=== PATIENT | male | born 1995 | race Caucasian/White ===

== ENCOUNTER 2024-05-08 09:29 | Outpatient (OUT) | payer OTHER, SELFPAY ==
[2024-05-08 10:00] LABS: Basophils Percent Auto 0.3 % (0.2-2.0); Eosinophils Absolute Auto 0.1 10^3/uL (0.0-0.7); Eosinophils Percent Auto 1.3 % (0.9-7.0); Hematocrit 39.8 % (42.0-54.0); Hemoglobin 12.8 g/dL (14.0-18.0); Immature Granulocytes Abs Auto 0.02 10^3/uL (0.00-0.03); Immature Granulocytes Pct Auto 0.3 % (0.0-0.5); Lymphocytes Absolute Auto 2.6 10^3/uL (1.2-3.8); Lymphocytes Percent Auto 38.6 % (20.5-60.0); Mean Corpuscular HGB Conc 32.2 g/dL (29.9-35.2); Mean Corpuscular Hemoglobin 27.8 pg (25.9-34.0); Mean Corpuscular Volume 86.3 fL (80.0-94.0); Mean Platelet Volume 10.8 fL (9.5-13.5); Monocytes Absolute Auto 0.8 10^3/uL (0.3-0.8); Monocytes Percent Auto 11.1 % (1.7-12.0); Neutrophils Absolute Auto 3.3 10^3/uL (1.4-6.5); Neutrophils Percent Auto 48.4 % (43.0-75.0); Platelet Count 247 10^3/uL (150-450); Red Blood Count 4.61 10^6/uL (4.70-6.10); Red Cell Distribution Width 12.7 % (11.0-15.0); White Blood Count 6.8 10^3/uL (4.0-11.0)
[2024-05-08 10:37] LABS: Estimated Average Glucose 126 mg/dL
[2024-05-08 12:11] LABS: Alanine Aminotransferase 148 U/L (16-63); Albumin Globulin Ratio 0.9; Albumin Level 3.6 g/dL (3.4-5.0); Alkaline Phosphatase 60 U/L (46-116); Aspartate Amino Transferase 49 U/L (15-37); BUN Creatinine Ratio 13.5; Bilirubin Total 0.5 mg/dL (0.2-1.0); Calcium 8.6 mg/dL (8.5-10.1); Carbon Dioxide 29.9 mmol/L (21.0-32.0); Chloride 103 mmol/L (98-107); Chol HDL Ratio 4.1; Cholesterol 139 mg/dL (<=200); Estimated GFR (African America >60 (>=60 mL/min/1.73m^2); Estimated GFR (Non-African Ame >60 (>=60 mL/min/1.73m^2); Free T3 3.13 pg/mL (2.18-3.98); Glucose 82 mg/dL (74-106); HDL Cholesterol 34 mg/dL (40-60); Potassium 3.9 mmol/L (3.5-5.1); Sodium 140 mmol/L (136-145); Thyroid Stimulating Hormone 2.206 uIU/mL (0.358-3.740); Total Protein 7.6 g/dL (6.4-8.2); Triglycerides 117 mg/dL (<=150); VLDL CHOLESTEROL 23.4 mg/dL
[2024-05-09 04:07] LABS: Insulin 17.9 uIU/mL (2.6-24.9)
== END 2024-05-08 09:30 | disposition home or self-care (01) ==
LOC: LAB 09:34
PROVIDERS: PCP Family Medicine; Visit Provider Family Medicine
DX: Z00.00 Encounter for general adult medical examination without abnormal findings (principal)
CPT/HCPCS: 36415; 80053; 80061; 83036; 83525; 84436; 84443; 84481; 85025; 87150

== ENCOUNTER 2024-05-31 08:06 | Outpatient (OUT) | payer OTHER, SELFPAY ==
--- OUTSIDE RECORDS SUMMARY | 2024-05-31 08:30 | XMS_ITS | CCD ---
Author Organization [facility] Informat ion Partnership [facility] Care Team Providers Care Nephrologist Name Role Phone DR YOVANI LOREDO Admitting Unavailable GERTRUDE, DR PINA Attending Unavailable DR YOVANI LOREDO Primary Care Unavailable Juma Roberts Attending Unavailable Results Test Name Value Interpretation Reference Range Facil ity Consenton 12-22-2021 Consent [id number] .00CD:127 [facility] In office Testingon 12-23-19 22 In office Testing [id number]# 1.00CD:127 [facility] Registrationon 12-22-2021 Registration [id number] .00CD:127 [facility] Encounters Encounter Date Encounter Type Care Provider Facility Start: 12-22-2021 End: 12-23-2021 ambulatory Juma Roberts Facility:[facility] Start: 12-05-[address] YOVANI LOREDO Facility : Payers Date Payer Category Payer Unknown [id number] 1958 Self-pay Summary Purpose Family History No Family History Records FoundNo Family History Records Found Advance Directives No Advanced Directives Records FoundNo Advanced Directives Records Found Additional Source Comments (unrecognized sect ion and content) No Status Records FoundNo Status Records Found INFORMATION SOURCE (unrecogn ized section and content) DATE CREATED AUTHOR 12/06/2021 [facility] DATE CREATED AUTHOR 'S ORGANIZ ATION 01/03/2022 [facility] FOR RECORDS PERTAINING TO PATIENTS WHO ARE OR HAVE BEEN ENROLLED IN A CHEMICAL DEPENDENCY/SUBSTANCEABUSE PROGRAM, SOME INFORMATION MAY BE OMITTED. This clinical summary was aggregated from multiple sources. Caution should be exercised in using it in the provision of clinical care. This summary normalizes information from multiple sources, and as a consequence, information in this document may materially change the coding, format and clinical context of patient data. In addition, data may be omitted in some cases. CLINICAL DECISIONS SHOULD BE BASED ON THE PRIMARY CLINICAL RECORDS. [facility]. provides no warranty or guarantee of the accuracy or completeness of information in this document.
[2024-05-31 09:05] LABS: Basophils Percent Auto 0.3 % (0.2-2.0); Eosinophils Absolute Auto 0.1 10^3/uL (0.0-0.7); Hemoglobin 13.8 g/dL (14.0-18.0); Immature Granulocytes Abs Auto 0.03 10^3/uL (0.00-0.03); Immature Granulocytes Pct Auto 0.3 % (0.0-0.5); Lymphocytes Absolute Auto 2.5 10^3/uL (1.2-3.8); Lymphocytes Percent Auto 28.4 % (20.5-60.0); Mean Corpuscular HGB Conc 32.1 g/dL (29.9-35.2); Mean Corpuscular Hemoglobin 27.9 pg (25.9-34.0); Mean Corpuscular Volume 86.9 fL (80.0-94.0); Mean Platelet Volume 11.6 fL (9.5-13.5); Monocytes Absolute Auto 0.7 10^3/uL (0.3-0.8); Monocytes Percent Auto 8.1 % (1.7-12.0); Neutrophils Absolute Auto 5.4 10^3/uL (1.4-6.5); Neutrophils Percent Auto 61.9 % (43.0-75.0); Platelet Count 240 10^3/uL (150-450); Red Blood Count 4.95 10^6/uL (4.70-6.10); Red Cell Distribution Width 12.8 % (11.0-15.0); White Blood Count 8.8 10^3/uL (4.0-11.0)
[2024-05-31 09:35] LABS: Alanine Aminotransferase 58 U/L (16-63); Albumin Globulin Ratio 0.9; Albumin Level 3.6 g/dL (3.4-5.0); Alkaline Phosphatase 67 U/L (46-116); Anion Gap 10.9; Aspartate Amino Transferase 24 U/L (15-37); BUN Creatinine Ratio 11.3; Bilirubin Total 0.4 mg/dL (0.2-1.0); Calcium 9.1 mg/dL (8.5-10.1); Carbon Dioxide 28.9 mmol/L (21.0-32.0); Chloride 102 mmol/L (98-107); Estimated GFR (African America >60 (>=60 mL/min/1.73m^2); Estimated GFR (Non-African Ame >60 (>=60 mL/min/1.73m^2); Globulin 4.1 g/dL; Glucose 86 mg/dL (74-106); Potassium 3.8 mmol/L (3.5-5.1); Sodium 138 mmol/L (136-145); Total Protein 7.7 g/dL (6.4-8.2)
[2024-06-01 05:07] LABS: HBsAg Screen Negative (Negative); HCV Ab Non Reactive (Non Reactive); Hep A Ab, IgM Negative (Negative); Hep B Core Ab, IgM Negative (Negative)
== END 2024-05-31 08:07 | disposition home or self-care (01) ==
LOC: LAB 08:08
PROVIDERS: PCP Family Medicine; Visit Provider Family Medicine
DX: R89.9 Unspecified abnormal finding in specimens from other organs, systems and tissues (principal)
CPT/HCPCS: 36415; 80053; 80074; 85025

== ENCOUNTER 2025-02-28 09:11 | Emergency (ER) | payer OTHER, SELFPAY ==
[2025-02-28 09:22] VITALS: BP 118/70; PULSE 60; TEMP 36.4; O2SAT 98; BMI 36.5
--- NOTE | 2025-02-28 09:28 | XR_ITS ---
The [address] [address] Patient Name: MARY BOYCE MRN: [id number] date: 1995 Sex: M Assigned Patient Location: ER Current Patient Location: Accession/Order Number: [id number] Exam Date: 02/28/2025 09:40 Report Date: 02/28/2025 10:07 At the request of: DENNIS THOMPSON MD Procedure: XR foot RT min 3V RIGHT FOOT - 3 views CLINICAL DATA: Pain at the fifth metatarsal after patient squatted down and felt a pop COMPARISON: None AP, lateral and oblique views were obtained. There is a transverse fracture at the proximal shaft of the fifth metatarsal, without displacement. There is no additional fracture or dislocation. There are no significant soft tissue abnormalities. XR/XR foot RT min 3V IMPRESSION: NONDISPLACED PROXIMAL FIFTH METATARSAL FRACTURE Impression dictated by: Lona Ponce M.D. 02/28/2025 10:07 AM Dictation Location: [place] [address] Electronically authenticated by: [id number] Y Date: 02/28/2025 10:07
--- NOTE | 2025-02-28 09:31 | ED_ITS ---
HPI HPI - General Adult General Chief complaint: Extremity Injury, Lower Stated complaint: LOWER EXTREMITY INJURY Time Seen by Provider: 02/28/25 09:24 Source: patient Mode of arrival: walk-in Limitations: no limitations History of Present Illness HPI narrative: 29-year-old male presents for right foot pain. This morning he crouched down and felt a popping in his foot. He points to the lateral aspect of his foot, fifth metatarsal area. The ankle does not hurt. He came in ambulatory. Related Data Previous Rx's ?Medication ?Instructions ?Recorded acetaminophen 300 mg-codeine 30 mg 1 tab PO Q6H PRN pa in 5 days #20 02/28/25 tablet tabs ibuprofen 800 mg tablet 800 mg PO Q8H PRN pain #20 t abs 02/28/25 Allergies Allergy/AdvReac Type Severity Reaction Status Date / Time No Known Drug Allergies Allergy Verified 02/28/25 09:25 Review of Systems ROS Narrative A ten point review of systems is negative except as noted above. PFSH PFSH Social History Little interest or pleasure in doing things: not at all Feeling down, depressed, or hopeless: not at all Exam Narrative Exam Narrative: Nurses note and vital signs reviewed General:The patient appears well and in no apparent distress.Patient is resting comfortably on cart. Skin:Warm, dry, no pallor noted.There is no rash noted. Head:Normocephalic, atraumatic Eye: Normal conjunctiva, no drainage Ears, Nose, Mouth, and Throat: oral mucosa is moist. Nares patent. Cardiovascular:Regular Rate and Rhythm Respiratory:Patient is in no distress, no accessory muscle use GI: Soft and nontender Musculoskeletal: The right ankle is nontender. He has some tenderness in the lateral aspect of his right foot where there is no bruising or break in the skin. Neurological: Awake and alert Psychiatric:Cooperative Constitutional Vital Signs, click to edit/add: Last Vital Signs Temp 97.6 F 02/28/25 09:22 Pulse 60 02/28/25 09:22 Resp 16 02/28/25 09:22 BP 118/70 02/28/25 09:22 Pulse Ox 98 02/28/25 09:22 O2 Del Method Room Air 02/28/25 09:22 Course Vital Signs Vital signs: Vital Signs Temperature 97.6 F 02/28/25 09:22 Pulse Rate 60 02/28/25 09:22 Respiratory Rate 16 02/28/25 09:22 Blood Pressure 118/70 02/28/25 09:22 Pulse Oximetry 98 02/28/25 09:22 Oxygen Delivery Method Room Air 02/28/25 09:22 Temperature 97.6 F 02/28/25 09:22 Pulse Rate 60 02/28/25 09:22 Respiratory Rate 16 02/28/25 09:22 Blood Pressure 118/70 02/28/25 09:22 Pulse Oximetry 98 02/28/25 09:22 Oxygen Delivery Method Room Air 02/28/25 09:22 Medical Decision Making MDM Narrative Medical decision making narrative: X-ray of the foot on my interpretation shows 1/5 metatarsal fracture. He is placed in a walking boot. Application checked by me and found to be appropriate, he is neurovascular intact. He is referred to podiatry and prescribed Tylenol 3 and ibuprofen. The importance of follow-up was discussed with the patient. Differential Diagnosis Differential Diagnosis: Fracture, sprain Imaging Data Right foot x-ray: My impression: Fifth metatarsal fracture Discharge Plan Discharge Chief Complaint: Extremity Injury, Lower Clinical Impression: Fracture of fifth metatarsal bone of right foot Patient Disposition: Home, Self-Care Time of Disposition Decision: 09:54 Condition: Good Mode of Transportation: Private Vehicle Prescriptions / Home Meds: New acetaminophen-codeine 300-30 mg tablet 1 tab PO Q6H PRN (Reason: pain) 5 Days Qty: 20 0RF ibuprofen 800 mg tablet 800 mg PO Q8H PRN (Reason: pain) Qty: 20 0RF Print Language: Stateless Instructions: Foot Fracture in Adults (ED) Referrals: Jose Antonio Henao MD [Primary Care Provider, Family Practice] - 1 week Raj Perez DPM [Physician, Podiatry]
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
--- OUTSIDE RECORDS SUMMARY | 2025-02-28 09:54 | XMS_ITS | Patient Health Record ---
Author Organization [facility] [place] Address [address] [place] [address] Care Team Providers Care Content Engineer Name Role Phone Deuce Henao Primary Care Provider Allergies No Known Allergies Results Component Value Reference Range Notes INSULIN Reviewed date:05/09/2024 02:26:39 PM Interpretation: Performing Lab: Notes/Report: [facility] , Insulin 17.9 2.6-24.9 uIU/mL [address] [place], [place] [id number] Rotary Drier: Fabrizio Garzon PhD, Phone: [phone] [facility]formed at: - [facility] Performing Lab: see note - [facility] LBGLYCOHEMOGLOBIN A1C Reviewed date:05/08/2024 09:05:54 PM Interpretation: Performing Lab: Notes/Report: [facility] ,Glycohemoglobin A1C6.04.5-6.2 % ADA RECOMMENDED LIMIT 4.0 - 6.0 > 7.0 ADA THERAPEUTIC TARGET < 7.0 ACTION SUGGESTED Estimated Average Ebohzri650Oojmstaqyk Lab:see noteML - [facility] LB CBC AUTO DIFF Reviewed date:05/08/2024 09:05:54 PM Interpretation: Performing Lab: Notes/Report: [facility] ,White Blood Count6.84.0-11.0 10 3/uLRed Blood Count4.614.70-6.10 10 6/uL Ucmrpwvlyk28.814.0-18.0 g/lSXbcfbkervg58.842.0-54.0 %Mean Corpuscular Fmkdvv50.3 80.0-94.0 fLMean Corpuscular Bxfzfldctt40.825.9-34.0 pgMean Corpuscular HGB Conc 32.229.9-35.2 g/dLRed Cell Distribution Width12.711.0-15.0 %Platelet Ssccw211 150-450 10 3/uLMean Platelet Zgttse01.89.5-13.5 fLNeutrophils Percent Auto48.4 43.0-75.0 %Lymphocytes Percent Auto38.620.5-60.0 %Monocytes Percent Auto11.11.7- 12.0 %Eosinophils Percent Auto1.30.9-7.0 %Basophils Percent Auto0.30.2-2.0 % Immature Granulocytes Pct Auto0.30.0-0.5 %Neutrophils Absolute Auto3.31.4-6.5 10 3/uLLymphocytes Absolute Auto2.61.2-3.8 10 3/uLMonocytes Absolute Auto0.80.3-0.8 10 3/uLEosinophils Absolute Auto0.10.0-0.7 10 3/uLBasophils Absolute Auto0.00.0- 0.1 10 3/uLImmature Granulocytes Abs Auto0.020.00-0.03 10 3/uLPerforming Lab:see noteML - [facility] LBTSH Reviewed date:05/08/2024 09:05:54 PM Interpretation: Performing Lab: Notes/Report: [facility] ,Thyroid Stimulating Hormone2.2060.358-3.740 uIU/mLPerforming Lab:see noteML - [facility] LBT4 Reviewed date:05/08/2024 09:05:54 PM Interpretation: Performing Lab: Notes/Report: [facility] ,T4 Thyroxine8.504.50-12.10 ug/dLPerforming Lab:see noteML - [facility] LBFREE T3 Reviewed date:05/08/2024 09:05:54 PM Interpretation: Performing Lab: Notes/Report: [facility] ,Free T33.132.18-3.98 pg/mLPerforming Lab:see noteML - [facility] LB Acute Hepatitis Reviewed date:06/01/2024 08:08:01 PM Interpretation: Performing Lab: Notes/Report: [facility] ,Hep A Ab, IgMNegativeNegative current HAV infection. A negative anti-HAV IgM result suggests no recent or HBsAg ScreenNegativeNegativeHep B Core Ab, IgMNegativeNegativeHCV AbNon Reactive Non ReactiveInterpretation:Comment. suspected (which may be delayed in an immunocompromised Performed at: - [facility] [address], [place], [place] [id number] individual), or other evidence exists to indicate HCV Not infected with HCV unless early or acute infection is infection. Rotary Drier: Fabrizio Garzon PhD, Phone: [phone] Performing Lab:see noteLC - [facility] LBPROF 14(COMP METB) Reviewed date:05/31/2024 12:42:49 PM Interpretation: Performing Lab: Notes/Report: [facility] ,Aqxxdi879016-267 mmol/LPotassium3.83.5-5.1 mmol/TRfjvekga37179-351 mmol/LCarbon Vlxwyip14.921.0-32.0 mmol/LAnion Gap10.0Pmalzxr1437-088 mg/dLBlood Urea Nitrogen 11.07.0-18.0 mg/dLCreatinine0.970.70-1.30 mg/dLEstimated GFR ( Bebe>60 >=60 mL/min/1.73m 2Estimated GFR (Non- Lurdes>60>=60 mL/min/1.73m 2BUN Creatinine Ratio11.4Mygueqv0.18.5-10.1 mg/dLBilirubin Total0.40.2-1.0 mg/dL Aspartate Amino Dvahqlfrlmi8928-00 U/LAlanine Jgzrgfqbhcequgnh5604-29 U/L Alkaline Entbendrtmn9859-082 U/LTotal Protein7.76.4-8.2 g/dLAlbumin Level3.63.4- 5.0 g/dLGlobulin4.1Albumin Globulin Ratio0.9Performing Lab:see noteML - [facility] LBCBC AUTO DIFF Reviewed date:05/31/2024 12:42:49 PM Interpretation: Performing Lab: Notes/Report: [facility] ,White Blood Count8.84.0-11.0 10 3/uLRed Blood Count4.954.70-6.10 10 6/uL Upguhuhjfd14.814.0-18.0 g/jNTzmahkaaqt36.042.0-54.0 %Mean Corpuscular Jxgzdc34.9 80.0-94.0 fLMean Corpuscular Sbburvycyo27.925.9-34.0 pgMean Corpuscular HGB Conc 32.129.9-35.2 g/dLRed Cell Distribution Width12.811.0-15.0 %Platelet Uzfii391 150-450 10 3/uLMean Platelet Mljddr06.69.5-13.5 fLNeutrophils Percent Auto61.9 43.0-75.0 %Lymphocytes Percent Auto28.420.5-60.0 %Monocytes Percent Auto8.11.7- 12.0 %Eosinophils Percent Auto1.00.9-7.0 %Basophils Percent Auto0.30.2-2.0 % Immature Granulocytes Pct Auto0.30.0-0.5 %Neutrophils Absolute Auto5.41.4-6.5 10 3/uLLymphocytes Absolute Auto2.51.2-3.8 10 3/uLMonocytes Absolute Auto0.70.3-0.8 10 3/uLEosinophils Absolute Auto0.10.0-0.7 10 3/uLBasophils Absolute Auto0.00.0- 0.1 10 3/uLImmature Granulocytes Abs Auto0.030.00-0.03 10 3/uLPerforming Lab:see noteML - [facility] LBPROF 14(COMP METB) Reviewed date:05/08/2024 09:05:54 PM Interpretation: Performing Lab: Notes/Report: [facility] ,Xhgjyk411382-993 mmol/LPotassium3.93.5-5.1 mmol/UXmsghkau81807-146 mmol/LCarbon Qqehhis17.921.0-32.0 mmol/LAnion Gap11.9Cwskosm7592-011 mg/dLBlood Urea Nitrogen 10.07.0-18.0 mg/dLCreatinine0.740.70-1.30 mg/dLEstimated GFR ( Bebe>60 >=60 mL/min/1.73m 2Estimated GFR (Non- Lurdes>60>=60 mL/min/1.73m 2BUN Creatinine Ratio13.9Nmdfxle8.68.5-10.1 mg/dLBilirubin Total0.50.2-1.0 mg/dL Aspartate Amino Fekjmfxzcqg2842-29 U/LAlanine Anoekxoicrmhmtyy95248-44 U/L Alkaline Zawardyingr1903-954 U/LTotal Protein7.66.4-8.2 g/dLAlbumin Level3.63.4- 5.0 g/dLGlobulin4.0Albumin Globulin Ratio0.9Performing Lab:see noteML - [facility] LBLIPID PROFILE Reviewed date:05/08/2024 09:05:54 PM Interpretation: Performing Lab: Notes/Report: [facility] ,Bentrmxqswaap351<=150 mg/kHKjhhagchizq563<=200 mg/dLHDL Mthjjiiedvq0114-93 mg/dL <40 mg/dl - HIGH CARDIOVASCULAR RISK > or =60 mg/dl - LOW CARDIOVASCULAR RISK LDL Cholesterol Inkypjdmsk90.0 160-189 mg/dl HIGH <100 mg/dl OPTIMAL 130-159 mg/dl BORDERLINE HIGH 100-129 mg/dl NEAR OR ABOVE OPTIMAL >190 mg/dl VERY HIGH VLDL SCQDVHXMSFJ80.4Chol HDL Ratio4.1 4.4 - 7.1 AVERAGE RISK >11.0 HIGH RISK 3.3 - 4.4 LOW RISK 7.1 - 11.0 MODERATE RISK Performing Lab:see noteML - [facility] LB Reason For Referral No Information Medications Medication SIG (Take, Route, Frequency, Duration) Notes Start Date End Date Status Cefdinir 300 MG 2 capsule Orally once a day; Dur ation: 10 days 5ActiveAmoxicillin-Pot Clavulanate 875-125 MG1 tablet Orally every 12 hrs; Duration: 10 days5ActiveDoxycycline Monohydrate 100 MG1 capsule Orally bid; Duration: 10 days5ActiveLisinopril 20 MG1 tablet Orally Once a day; Duration: 90 daysActive Social History Tobacco Use: Social History Observation Description Date Details (start date - stop date) Never Smoker NA - NA Tobacco Use/Smoking Question Answer Notes Patient is a nonsmoker Alcohol Screen (Audit-C) Question Answer Notes Did you have a drink containing alcohol in the p ast year? Yes How often did you have 6 or more drinks on one occasion in the past year?Never (0 point)How many drinks did you have on a typical day when you were drinking in the past year?1 or 2 drinks (0 point)How often did you have a drink containing alcohol in the past year?Less than monthly (1 point)Awnpqt7Eopetksrhvvcpv NegativeAUDIT-C (Standard) Question Answer Notes Did you have a drink containing alcohol in the p ast year? No Krgvrc6XhwizpyojzfwxdXwcmqysn Problems Problem Type SNOMED Code ICD Code Onset Dates Problem Status W/U Status Risk Notes Problem Hypertension (40025710) Hypertension (I10 ) ActiveconfirmedProblemWell adult (606586634)Well adult (Z00.00)Activeconfirmed ProblemLaboratory test result abnormal (708855103)Abnormal laboratory test (R89.9)Activeconfirmed Vital Signs Blood pressure diastolic 90 mm Hg 05/08/2024 Viyjny03 in05/08/2024lood pressure trcnfmfi620 mm Hg05/08/20240417Pzhmmp980.2 lbs 05/08/2024BMI47.14 kg/m205/08/2024 Encounters Encounter Location Date Provider Diagnosis [address] [address] 05/08/2024 Deuce Henao Well adult Z00.00 an d Ingrowing left great toenail L60.0 [facility] [address] [place] [address] 05/08/2024 Deuce Henao [facility] [place] [address] 05/08/2024Doug HoyAbnormal laboratory test R89.[address] [address]/08/2025Deuce Henao Assessments Encounter Date Diagnosis (ICD Code) Assessment Notes Treatment Notes Treatment Clinical Notes Section Notes 05/08/2024 Well adult (ICD-10 - Z00.00) 05/08/2024Ingrowing left great toenail (ICD-10 - L60.0)05/08/2024bnormal laboratory test (ICD-10 - R89.9) Plan Of Treatment Pending Test Test Name Order Date CMP (COMPLETE METABOLIC PANEL) 3 HEMOGLOBIN A1C (GLYCO) 05/08/2024 HEMOGLOBIN A1C (GLYCO) 02/23/2023 INSULIN, TOTAL 05/08/2024 INSULIN, TOTAL 02/23/2023 LIPID PANEL (CHOL/TRIG/HDL/LDL) 05/08/19 25 LIPID PANEL (CHOL/TRIG/HDL/LDL) 02/24/20 23 CBC WITH DIFF (EXP 02/2025) 02/23/2023 CBC WITH DIFF (EXP 02/2025) 05/08/2024 URIC ACID 02/23/2023 ACUTE HEPATITIS PANEL 05/08/2024 COMPREHENSIVE METABOLIC PROFILE WITH GFR 05/08/2024 CBC W/AUTO DIFF 05/08/2024 THYROID PANEL (T4/TSH/FREE T3) 5 THYROID PANEL (T4/TSH/FREE T3) 3 CMP (COMP MET LYONS) w/eGFR CKD-EPI 2024 Insurance Providers Payer Name Payer Address Payer Phone Subscriber Number Group Number Insured Name Patient Relationship to Insured Coverage Start Date Coverage End Date [facility] [address] [place] [id number] Cyrus Robles - patient is the insured Medical (General) History Medical History History ICD Code Otitis media H66.90 Ganglion cyst M67.40 Auditory impairment H91.90 ADHD F90.9 Surgical History Surgery Date(Month/Year) Circumcision
== END 2025-02-28 10:02 | disposition home or self-care (01) ==
PROVIDERS: Emergency Provider Emergency Medicine; PCP Family Medicine
DX: S92.354A Nondisplaced fracture of fifth metatarsal bone, right foot, initial encounter for closed fracture (principal); X58.XXXA Exposure to other specified factors, initial encounter
CPT/HCPCS: 73630; 99283

== ENCOUNTER 2025-03-27 13:43 | Outpatient (OUT) | payer OTHER, SELFPAY ==
--- OUTSIDE RECORDS SUMMARY | 2025-03-27 13:47 | XMS_ITS | Patient Health Record ---
Author Organization [facility] [place] Address [address] [place] [address] Care Team Providers Care Cardiology Consultants Name Role Phone Deuce Henao Primary Care Provider Allergies No Known Allergies Results Component Value Reference Range Notes CBC AUTO DIFF Reviewed date:05/08/2024 09:05:54 PM Interpretation: Performing Lab: Notes/Report: [facility] , White Blood Count 6.8 4.0-11.0 10 3/uL Red Blood Count4.614.70-6.10 10 6/wPRwwuixiehp13.814.0-18.0 g/mWFquniwvkad92.8 42.0-54.0 %Mean Corpuscular Ztepcm71.380.0-94.0 fLMean Corpuscular Hemoglobin 27.825.9-34.0 pgMean Corpuscular HGB Conc32.229.9-35.2 g/dLRed Cell Distribution Width12.711.0-15.0 %Platelet Qfsqm621246-931 10 3/uLMean Platelet Isjjkd43.89.5- 13.5 fLNeutrophils Percent Auto48.443.0-75.0 %Lymphocytes Percent Auto38.620.5- 60.0 %Monocytes Percent Auto11.11.7-12.0 %Eosinophils Percent Auto1.30.9-7.0 % Basophils Percent Auto0.30.2-2.0 %Immature Granulocytes Pct Auto0.30.0-0.5 % Neutrophils Absolute Auto3.31.4-6.5 10 3/uLLymphocytes Absolute Auto2.61.2-3.8 10 3/uLMonocytes Absolute Auto0.80.3-0.8 10 3/uLEosinophils Absolute Auto0.10.0- 0.7 10 3/uLBasophils Absolute Auto0.00.0-0.1 10 3/uLImmature Granulocytes Abs Auto0.020.00-0.03 10 3/uLPerforming Lab:see note - [facility] FREE T3 Reviewed date:05/08/2024 09:05:54 PM Interpretation: Performing Lab: Notes/Report: [facility] ,Free T33.132.18-3.98 pg/mLPerforming Lab:see [facility] GLYCOHEMOGLOBIN A1C Reviewed date:05/08/2024 09:05:54 PM Interpretation: Performing Lab: Notes/Report: [facility] ,Glycohemoglobin A1C6.04.5-6.2 % ADA RECOMMENDED LIMIT 4.0 - 6.0 > 7.0 ADA THERAPEUTIC TARGET < 7.0 ACTION SUGGESTED Estimated Average Keorujm161Mxtqgrtrvq [facility] Reviewed date:05/09/2024 02:26:39 PM Interpretation: Performing Lab: Notes/Report: [facility] ,Vzvjzso06.92.6-24.9 uIU/mL [address] [place], [place] [id number] Insurance Sales Associate: Fabrizio Garzon PhD, Phone: [phone] Performed at: [facility] Performing Lab:see [facility] LBLIPID PROFILE Reviewed date:05/08/2024 09:05:54 PM Interpretation: Performing Lab: Notes/Report: [facility] ,Lrzuypjuctxaz606<=150 mg/aTAiuxzfiehij886<=200 mg/dLHDL Ynamsibdqnq7048-38 mg/dL <40 mg/dl - HIGH CARDIOVASCULAR RISK > or =60 mg/dl - LOW CARDIOVASCULAR RISK LDL Cholesterol Yxzjqijvwm45.0 160-189 mg/dl HIGH <100 mg/dl OPTIMAL 130-159 mg/dl BORDERLINE HIGH 100-129 mg/dl NEAR OR ABOVE OPTIMAL >190 mg/dl VERY HIGH VLDL SZUWWWDNJMO40.4Chol HDL Ratio4.1 4.4 - 7.1 AVERAGE RISK >11.0 HIGH RISK 3.3 - 4.4 LOW RISK 7.1 - 11.0 MODERATE RISK Performing Lab:see noteML - [facility] LBPROF 14(COMP METB) Reviewed date:05/08/2024 09:05:54 PM Interpretation: Performing Lab: Notes/Report: [facility] ,Szdkuy568358-962 mmol/LPotassium3.93.5-5.1 mmol/TYpovcvwr27426-455 mmol/LCarbon Ffzrwke59.921.0-32.0 mmol/LAnion Gap11.0Iqpuwsp8238-747 mg/dLBlood Urea Nitrogen 10.07.0-18.0 mg/dLCreatinine0.740.70-1.30 mg/dLEstimated GFR ( Bebe>60 >=60 mL/min/1.73m 2Estimated GFR (Non- Lurdes>60>=60 mL/min/1.73m 2BUN Creatinine Ratio13.0Yizxqwo2.68.5-10.1 mg/dLBilirubin Total0.50.2-1.0 mg/dL Aspartate Amino Oikyhnixqam0369-22 U/LAlanine Ylppibgsstosyxro56601-62 U/L Alkaline Izxtfuehlps8793-514 U/LTotal Protein7.66.4-8.2 g/dLAlbumin Level3.63.4- 5.0 g/dLGlobulin4.0Albumin Globulin Ratio0.9Performing Lab:see noteML - [facility] LBT4 Reviewed date:05/08/2024 09:05:54 PM Interpretation: Performing Lab: Notes/Report: [facility] ,T4 Thyroxine8.504.50-12.10 ug/dLPerforming Lab:see noteML - [facility] LBTSH Reviewed date:05/08/2024 09:05:54 PM Interpretation: Performing Lab: Notes/Report: [facility] ,Thyroid Stimulating Hormone2.2060.358-3.740 uIU/mLPerforming Lab:see note - [facility] LBCBC AUTO DIFF Reviewed date:05/31/2024 12:42:49 PM Interpretation: Performing Lab: Notes/Report: [facility] ,White Blood Count8.84.0-11.0 10 3/uLRed Blood Count4.954.70-6.10 10 6/uL Hojsmkbccp99.814.0-18.0 g/jYKsqeyejktg74.042.0-54.0 %Mean Corpuscular Lamgjr76.9 80.0-94.0 fLMean Corpuscular Jpqpuafcil26.925.9-34.0 pgMean Corpuscular HGB Conc 32.129.9-35.2 g/dLRed Cell Distribution Width12.811.0-15.0 %Platelet Fkxwh389 150-450 10 3/uLMean Platelet Xyzlzn76.69.5-13.5 fLNeutrophils Percent Auto61.9 43.0-75.0 %Lymphocytes Percent Auto28.420.5-60.0 %Monocytes Percent Auto8.11.7- 12.0 %Eosinophils Percent Auto1.00.9-7.0 %Basophils Percent Auto0.30.2-2.0 % Immature Granulocytes Pct Auto0.30.0-0.5 %Neutrophils Absolute Auto5.41.4-6.5 10 3/uLLymphocytes Absolute Auto2.51.2-3.8 10 3/uLMonocytes Absolute Auto0.70.3-0.8 10 3/uLEosinophils Absolute Auto0.10.0-0.7 10 3/uLBasophils Absolute Auto0.00.0- 0.1 10 3/uLImmature Granulocytes Abs Auto0.030.00-0.03 10 3/uLPerforming Lab:see noteML - [facility] LBPROF 14(COMP METB) Reviewed date:05/31/2024 12:42:49 PM Interpretation: Performing Lab: Notes/Report: [facility] ,Pwdyrw094025-151 mmol/LPotassium3.83.5-5.1 mmol/YVhytjfgo07521-557 mmol/LCarbon Jkavjjx96.921.0-32.0 mmol/LAnion Gap10.2Pzqjgdn3061-656 mg/dLBlood Urea Nitrogen 11.07.0-18.0 mg/dLCreatinine0.970.70-1.30 mg/dLEstimated GFR ( Bebe>60 >=60 mL/min/1.73m 2Estimated GFR (Non- Lurdes>60>=60 mL/min/1.73m 2BUN Creatinine Ratio11.7Htowgyr7.18.5-10.1 mg/dLBilirubin Total0.40.2-1.0 mg/dL Aspartate Amino Jzwqbildxlm1423-11 U/LAlanine Jzxkhhsfdpvpatju4288-77 U/L Alkaline Atydwwhwuvs9654-351 U/LTotal Protein7.76.4-8.2 g/dLAlbumin Level3.63.4- 5.0 g/dLGlobulin4.1Albumin Globulin Ratio0.9Performing Lab:see noteML - [facility] LBAcute Hepatitis Reviewed date:06/01/2024 08:08:01 PM Interpretation: Performing Lab: Notes/Report: [facility] ,Hep A Ab, IgMNegativeNegative current HAV infection. A negative anti-HAV IgM result suggests no recent or HBsAg ScreenNegativeNegativeHep B Core Ab, IgMNegativeNegativeHCV AbNon Reactive Non ReactiveInterpretation:Comment. suspected (which may be delayed in an immunocompromised Performed at: - [facility] [id number] individual), or other evidence exists to indicate HCV Not infected with HCV unless early or acute infection is infection. Insurance Sales Associate: Fabrizio Garzon PhD, Phone: [phone] Performing Lab:see note - [facility] LBXR foot RT min 3V Reviewed date:02/28/2025 12:52:14 PM Interpretation: Performing Lab: Notes/Report: Source Facility: [facility]-[address] [place] [address] [place] [address] XRay Report Signed Patient: MARY ROBLES MR#: [id number] : 1995 Acct:[id number] Age/Sex: 29 / M ADM Date: 02/28/25 Loc: ER Attending Dr: Ordering Physician: Dennis Thompson M.D. Date of Service: 02/28/25 Procedure(s): XR foot RT min 3V Accession Number(s): [id number] cc: Jose Antonio Henao M.D.; Dennis Thompson M.D. [place] [id number] Patient Name: MARY ROBLES MRN: [id number] date: 1995 Sex: M Assigned Patient Location: ER Current Patient Location: Accession/Order Number: [id number] Exam Date: 02/28/2025 09:40 Report Date: 02/28/2025 10:07 At the request of: DENNIS THOMPSON MD Procedure: XR foot RT min 3V RIGHT FOOT - 3 views CLINICAL DATA: Pain at the fifth metatarsal after patient squatted down and felt a pop COMPARISON: None AP, lateral and oblique views were obtained. There is a transverse fracture at the proximal shaft of the fifth metatarsal, without displacement. There is no additional fracture or dislocation. There are no significant soft tissue abnormalities. XR/XR foot RT min 3V IMPRESSION: NONDISPLACED PROXIMAL FIFTH METATARSAL FRACTURE Impression dictated by: Lona Ponce M.D. 02/28/2025 10:07 AM Dictation Location: [place] [address] Electronically authenticated by: [id number] Y Date: 02/28/2025 10:07 Dictated By: Lona Ponce M.D. Signed By: 02/28/25 1010 DD/ 1007 TD/TT: Metal Cleaner: Reason For Referral No Information Medications Medication SIG (Take, Route, Frequency, Duration) Notes Start Date End Date Status Lisinopril 20 MG 1 tablet Orally Once a day; Dur ation: 90 days ActiveAcetaminophen-Codeine 300-30 MG 1 tablet as needed Orally every 6 hrs; Duration: 7 days S92.309A 5Active Social History Tobacco Use: Social History Observation [...] in the past year?Less than monthly (1 point)Mknvta4Qooafuvqoqypfm NegativeAUDIT-C (Standard) Question Answer Notes Did you have a drink containing alcohol in the p ast year? No Yjikzq4AbtogjybmxwhzjTfekhqji Problems Problem Type SNOMED Code ICD Code Onset Dates Problem Status W/U Status Risk Notes Problem Hypertension (81625598) Hypertension (I10 ) ActiveconfirmedProblemWell adult (639988151)Well adult (Z00.00)Activeconfirmed ProblemLaboratory test result abnormal (113156668)Abnormal laboratory test (R89.9)ActiveconfirmedProblemMetatarsal bone fracture (094323318)Metatarsal bone fracture (S92.309A)Activeconfirmed Vital Signs Blood pressure diastolic 90 mm Hg 05/08/2024 Ijyysx74 in05/08/2024lood pressure vsphnbwo867 mm Hg05/08/20247091Jgttwz921.2 lbs 05/08/2024BMI47.14 kg/m205/08/2024 Encounters Encounter Location Date Provider Diagnosis [address] [address] 05/08/2024 Deuce Hoy Well adult Z00.00 an d Ingrowing left great toenail L60.[address] [address] 05/08/2024 Deuce [facility] [place] [address] 05/08/2024Doug HoyAbnormal laboratory test R89.[address] [address]/08[facility] [place] [address]/26/2025Doug [facility] [place] [address] 03/12/2025Doug HoyIngrowing left great toenail L60.0 Assessments Encounter Date Diagnosis (ICD Code) Assessment Notes Treatment Notes Treatment Clinical Notes Section Notes 05/08/2024 Well adult (ICD-10 - Z00.00) 05/08/2024Ingrowing left great toenail (ICD-10 - L60.0)05/08/2024bnormal laboratory test (ICD-10 - R89.9)03/12/2025Ingrowing left great toenail (ICD-10 - L60.0) Plan Of Treatment Pending Test Test Name [...] Insured Coverage Start Date Coverage End Date [facility] [address] [place] [phone] [id number] Cyrus Robles - patient is the insured Medical (General) History Medical History History ICD Code Otitis media H66.90 Ganglion cyst M67.40 Auditory impairment H91.90 ADHD F90.9 Surgical History Surgery Date(Month/Year) Circumcision
--- OUTSIDE RECORDS SUMMARY | 2025-03-27 13:47 | XMS_ITS | Patient Health Record ---
Author Organization [employer] [facility] Address [address] [place], [place] [address] [address] Care Team Providers Care Banquet Steward Name Role Phone Jose Antonio Hneao M.D. Primary Care Provider UnavailRaj Andre Unavailable [phone] Allergies No Known Allergies Reason For Referral No Information Medications Medication SIG (Take, Route, Frequency, Duration) Notes Start Date End Date Status Acetaminophen-Codeine 300-30 MG Tablet 1 tablet as needed Orally every 6 hrs; Duration: 7 days As needed 515ActiveIbuprofen 800 MG Tablet 1 tablet with food or milk as needed Orally every 8 hrs; Duration: 30 days As needed 5ActiveAcetaminophen-Codeine 300-30 MG TabletOral; Duration: 5 Days ActiveLisinopril 20 MG TabletOral; Duration: 90 DaysActiveIbuprofen 800 MG TabletOral; Duration: 7 DaysActive Social History Section Notes: No tobacco use. Social alcohol use. No tobacco use. Social alcohol use. Encounters Encounter Location Date Provider Diagnosis [facility] [address] [address] 03/27/2025 Raj Perez Closed nondisplaced fracture of fifth metatarsal bone of right foot, initial encounter S92.354A [facility] [address] [address] 03/05/2025 Raj Perez Closed nondisplaced fracture of fifth metatarsal bone of right foot, initial encounter S92.354A Assessments Encounter Date Diagnosis (ICD Code) Assessment Notes Treatment Notes Treatment Clinical Notes Section Notes 03/05/2025 Closed nondisplaced fracture of fifth metatarsal bone of right foot, initial encounter (ICD-10 - S92.354A) Patient was seen and evaluated. I had a lengthy discussion with him regarding pros and cons of surgery. 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 I discussed that he should be nonweight bearing and provided a prescription for crutches and a handout for a knee scooter. I explained that where his 5th metatarsal fracture occured is at a location of a stress fracture and he did admit to having some pain in this area prior to the pop he felt last week. This area of the metatarsal has a relatively poor blood supply therefore can be slow to heal. I related that oftenyounger more active people are able to return back to normal activity and work up to a month or so s ooner if they undergo surgery. Further, with surgery there is a lesser chance of nonunion or delayed union. That said there is no way to predict the future and if he is strictly nonweight bearing we may see fracture healing on imaging in 8- 12 weeks. I recommended he discuss with his HR department regarding FMLA as he related that this injury did not occur while working. For now I recommended we write him off work for 3 months. He will call tomorrow if he would like to proceed with nonsurgical or surgical care. If he continues with nonsurgical care I recommended he f/u in 2 weeks with new xrays. 5Closed nondisplaced fracture of fifth metatarsal bone of right foot, initial encounter (ICD-10 - S92.354A) DOI 02/28/25 Eddy would like to undergo surgery however I related we should reevaluate xrays to ensure surgery is necessary given he is a month from his fracture. Xrays were ordered and reviewed. I called him with the results: I did prescribe refills for Tylenol #3 and ibuprofen. I provided a prescription for gait training with PT. Plan Of Treatment No Information Insurance Providers Payer Name Payer Address Payer Phone Subscriber Number Group Number Insured Name Patient Relationship to Insured Coverage Start Date Coverage End Date [employer] [address] [address] [place] [address] [id number] Cyrus Robles - patient is the insured Medical (General) History Medical History History ICD Code High Blood Pressure
--- NOTE | 2025-03-27 14:05 | XR_ITS ---
The [address] [address] Patient Name: MARY BOYCE MRN: [id number] date: 1995 Sex: M Assigned Patient Location: [facility] Current Patient Location: Accession/Order Number: [id number] Exam Date: 03/27/2025 14:10 Report Date: 03/27/2025 23:33 At the request of: AKBAR MULLER DPM Procedure: XR foot RT min 3V 3 views right foot compared to prior examination 02/28/2025. There is stable bony alignment with interval healing of fracture of the proximal portion of the fifth metatarsal. XR/XR foot RT min 3V Impression: Healing fracture with stable alignment Impression dictated by: Del Michael M.D. 03/27/2025 11:33 PM Dictation Location: [place] [address] Electronically authenticated by: [id number] Y Date: 03/27/2025 23:33
== END 2025-03-27 13:44 | disposition home or self-care (01) ==
LOC: RAD 13:45
PROVIDERS: PCP Family Medicine; Visit Provider Podiatrist Foot & Ankle Surgery
DX: M79.671 Pain in right foot (principal); S92.354D Nondisplaced fracture of fifth metatarsal bone, right foot, subsequent encounter for fracture with routine healing
CPT/HCPCS: 73630

== ENCOUNTER 2025-04-03 13:37 | Outpatient (OUT) | payer OTHER, SELFPAY ==
--- OUTSIDE RECORDS SUMMARY | 2025-03-27 08:30 | XMS_ITS ---
Author Organization [employer] Address [address] [address], [facility] [place] [address] Care Team Providers Care Electronics Specialist Name Role Phone Jose Antonio Henao M.D. Primary Care Provider UnavailRaj Andre Unavailable [phone] Allergies No Known Allergies REASON FOR VISIT Surgery Consult Agapito Edgar Medications Medication SIG (Take, Route, Frequency, Duration) Notes Start Date End Date Status Acetaminophen-Codeine 300-30 MG Tablet 1 tablet as needed Orally every 6 hrs; Duration: 7 days As needed 515ActiveAcetaminophen-Codeine 300-30 MG TabletOral; Duration: 5 DaysActiveIbuprofen 800 MG Tablet 1 tablet with food or milk as needed Orally every 8 hrs; Duration: 30 days As needed 5ActiveLisinopril 20 MG TabletOral; Duration: 90 DaysActiveIbuprofen 800 MG TabletOral; Duration: 7 DaysActive Social History Section Notes: No tobacco use. Social alcohol use. Encounters Encounter [facility] Date [facility] [address] [address], [facility] [place] [address] 03/27/2025 Raj Perez Closed nondisplaced fracture of fifth metatarsal bone of right foot, initial encounter S92.354A Assessments Encounter Date Diagnosis (ICD Code) Assessment Notes Treatment Notes Treatment Clinical Notes Section Notes 03/27/2025 Closed nondisplaced fracture of fifth metatarsal bone of right foot, initial encounter (ICD-10 - S92.354A) DOI 02/28/25 Eddy would like to undergo surgery however I related we should reevaluate xrays to ensure surgery is necessary given he is a month from his fracture. Xrays were ordered and reviewed. I called him with the results: Xrays reveal that fracture is unhealed and more visible on plain films. I discussed the pros & cons of continued nonoperative care vs surgical intervention. Patient would like to undergo surgical intervention and I recommended: Open reduction and internal fixation of right 5th metatarsal fracture Specific complications that could potentially occur were discussed in detail which included wound/dehiscence, infection, pain, bleeding, numbness/tingling, DVT/PE, swelling and need for additional surgery. Additional complications discussed included nonunion, delayed union, malunion and painful hardware. Postoperative course was discussed including weight bearing status: NWB x1-3 weeks Estimated time off of work: 3 months Orders for preoperative clearance and scheduling were placed. Anesthesia was discussed and all questions answered to satisfaction. I did prescribe refills for Tylenol #3 and ibuprofen. I provided a prescription for gait training with PT. Plan Of Treatment Medication Medication Name Sig Start Date Stop Date Notes Acetaminophen-Codeine 300-30 MG Tablet 1 tablet as needed Orally every 6 hrs; Duration: 7 days 03/27/2025 04/03/2025 Ibuprofen 800 MG Tablet1 tablet with food or milk as needed Orally every 8 hrs; Duration: 30 days03/27/2025Treatment Notes Assessment Notes Closed nondisplaced fracture of fifth metatarsal bone of right foot, initial encounter DOI 02/28/25 Eddy would like to undergo surgery however I related we should reevaluate xrays to ensure surgery is necessary given he is a month from his fracture. Xrays were ordered and reviewed. I called him with the results: Xrays reveal that fracture is unhealed and more visible on plain films. I discussed the pros & cons of continued nonoperative care vs surgical intervention. Patient would like to undergo surgical intervention and I recommended: Open reduction and internal fixation of right 5th metatarsal fracture Specific complications that could potentially occur were discussed in detail which included wound/dehiscence, infection, pain, bleeding, numbness/tingling, DVT/PE, swelling and need for additional surgery. Additional complications discussed included nonunion, delayed union, malunion and painful hardware. Postoperative course was discussed including weight bearing status: NWB x1-3 weeks Estimated time off of work: 3 months Orders for preoperative clearance and scheduling were placed. Anesthesia was discussed and all questions answered to satisfaction. I did prescribe refills for Tylenol #3 and ibuprofen. I provided a prescription for gait training with PT. Next Appt Details Follow Up: 1 week post op, R rahel: History and Physical Notes * HPI (History of Present Illness) CategorySub-CategoryDetailNotesCategory NotesFootEddy presents for f/u of right Agapito Fx. He relates he hasn't been able to use crutches because he doesn't know how so has been WBAT in CAM boot. He relates after a lot of thought he would like to proceed with surgery. He denies calf pain, CP and SOB. Examination CategorySub-CategoryDetailNotesCategory NotesGeneral Examination Skin: Skin intact. No sign of infection Neuro: LTS intact to plantar and dorsal foot. Negative tinel's sign Vasc: pedal pulses are palpable. No calf pain on squeeze. Right lateral foot swelling MSK: POP over proximal 5th met shaft. Strength and ROM deferred due to known fracture. No obvious deformity. He is able to wiggle toes without pain. Compartments are soft. Progress Notes * Fahad ROBLESDOB: 7 (29 yo M)Acc No.[id number]:03/27/2025 Progress Notes Patient: Fahad Grullon :?JENNIFER ArandaOB:1995???Age:29 Y ???Sex:MaleDate:03/27/2025Phone:Address:[address] [place] [address] , [facility] [place]Pcp:Jose Antonio Henao M.D. Subjective: * Chief Complaints: * S urgery Consult Agapito Fx * HPI: ???Foot:?Eddy presents for f/u of right Agapito Fx. He relates he hasn't been able to use crutches because he doesn't know how so has been WBAT in CAM boot. He relates after a lot of thought he would like to proceed with surgery. He denies calf pain, CP and SOB. * Medical History: High Blood Pressure Medical History Verified * Surgical History: Denies Past Surgical History.? Surgical History verified.? * Family History: M other: alive, diagnosed with Type 2 diabetes mellitus without complication, unspecified whether residential insulin use, Essential hypertension. F amily History Verified.. * Social History: Social History Verified. ???No tobacco use. Social alcohol use. * Medications: T akingAcetaminophen-Codeine 300-30 MG Tablet Oral Lisinopril 20 MG Tablet Oral Ibuprofen 800 MG Tablet Oral Medication List reviewed and reconciled with the patientTaking Acetaminophen-Codeine 300-30 MG Tablet Oral Taking Lisinopril 20 MG Tablet Oral Taking Ibuprofen 800 MG Tablet Oral Medication List reviewed and reconciled with the patient * Allergies: N .K.D.A.yesAllergies Verified. Objective: * Examination: ???General Examination: ???Skin: Skin intact. No sign of infection Neuro: LTS intact to plantar and dorsal foot. Negative tinel's sign Vasc: pedal pulses are palpable. No calf pain on squeeze. Right lateral foot swelling MSK: POP over proximal 5th met shaft. Strength and ROM deferred due to known fracture. No obvious deformity. He is able to wiggle toes without pain. Compartments are soft. Assessment: * Assessment: 1.?Closed nondisplaced fracture of fifth metatarsal bone of right foot, initial encounter - S92.354A (Primary)??? Plan: * Treatment: Start Acetaminophen-Codeine Tablet, 300-30 MG, 1 tablet as needed, Orally, every 6 hrs As needed, 7days, 28 Tablet, Refills 0;?Start Ibuprofen Tablet, 800 MG, 1 tablet with food or milk as needed, Orally, every 8 hrs As needed, 30 days, 90 Tablet, Refills 1.?? Notes: DOI 02/28/25 Eddy would like to undergo surgery however I related we should reevaluate xrays to ensure surgery is necessary given he is a month from his fracture. Xrays were ordered and reviewed. I called him with the results:? Xrays reveal that fracture is unhealed and more visible on plain films.? I discussed the pros & cons of continued nonoperative care vs surgical intervention. Patient would like to undergo surgical intervention and I recommended: Open reduction and internal fixation of right 5th metatarsal fracture Specific complications that could potentially occur were discussed in detail which included wound/dehiscence, infection, pain, bleeding, numbness/tingling, DVT/PE, swelling and need for additional surgery. Additional complications discussed included nonunion, delayed union, malunion and painful hardware. Postoperative course was discussed including weight bearing status: NWB x1-3 weeks Estimated time off of work: 3 months Orders for preoperative clearance and scheduling were placed. Anesthesia was discussed and all questions answered to satisfaction.? I did prescribe refills for Tylenol #3 and ibuprofen. I provided a prescription for gait training with PT.??? * Follow Up: 1 week post op Billing Information: * Visit Code: 32542 Office Visit, Est Pt., Level 4. * Procedure Codes: * Sign off status: Completed true * Provider: Shannon Perez DPM Date: 05/28/2024 Generated for Printing/Faxing/eTransmitting on:?04/03/2025 01:42 PM EST
--- OUTSIDE RECORDS SUMMARY | 2025-04-03 13:42 | XMS_ITS | Patient Health Record ---
Author Organization [email or web address] [facility] Address [address] [place], [place] [address], [place] [address] Care Team Providers Care Cow Washer Name Role Phone Jose Antonio Henao M.D. Primary Care Provider UnavailRaj Andre Unavailable [phone] Allergies No Known Allergies Reason For Referral [...] use. Encounters Encounter Location Date Provider Diagnosis [facility] [address] [address] 03/05/2025 Raj Perez Closed nondisplaced fracture of fifth metatarsal bone of right foot, initial encounter S92.354A [facility] [address] [address] 03/27/2025 Raj Perez Closed nondisplaced fracture of [...] Coverage Start Date Coverage End Date [employer] [address] [address] [place] [address] [id number] Cyrus Robles - patient is the insured Medical (General) History Medical History History ICD Code High Blood Pressure
--- OUTSIDE RECORDS SUMMARY | 2025-04-03 13:43 | XMS_ITS | Patient Health Record ---
Author Organization [facility] in [place] Address [address] [place] [address] Care Team Providers Care Defence Force Member Other Ranks Name Role Phone Deuce Henao Primary Care Provider Allergies No Known Allergies Results Component Value Reference Range Notes CBC AUTO DIFF Reviewed date:05/08/2024 09:05:54 PM Interpretation: Performing Lab: Notes/Report: [facility] , White Blood Count 6.8 4.0-11.0 10 3/uL Red Blood Count4.614.70-6.10 10 6/uTVvsdlnmblj30.814.0-18.0 g/mKTtqqkwaqbm86.8 42.0-54.0 %Mean Corpuscular Usjyzu10.380.0-94.0 fLMean Corpuscular Hemoglobin 27.825.9-34.0 pgMean Corpuscular HGB Conc32.229.9-35.2 g/dLRed Cell Distribution Width12.711.0-15.0 %Platelet Dykdd056610-855 10 3/uLMean Platelet Dqgalk28.89.5- 13.5 fLNeutrophils Percent Auto48.443.0-75.0 %Lymphocytes Percent Auto38.620.5- 60.0 %Monocytes Percent Auto11.11.7-12.0 %Eosinophils Percent Auto1.30.9-7.0 % Basophils Percent Auto0.30.2-2.0 %Immature Granulocytes Pct Auto0.30.0-0.5 % Neutrophils Absolute Auto3.31.4-6.5 10 3/uLLymphocytes Absolute Auto2.61.2-3.8 10 3/uLMonocytes Absolute Auto0.80.3-0.8 10 3/uLEosinophils Absolute Auto0.10.0- 0.7 10 3/uLBasophils Absolute Auto0.00.0-0.1 10 3/uLImmature Granulocytes Abs Auto0.020.00-0.03 10 3/uLPerforming Lab:see noteML - [facility] LB FREE T3 Reviewed date:05/08/2024 09:05:54 PM Interpretation: Performing Lab: Notes/Report: [facility] ,Free T33.132.18-3.98 pg/mLPerforming Lab:see noteML - [facility] LB LIPID PROFILE Reviewed date:05/08/2024 09:05:54 PM Interpretation: Performing Lab: Notes/Report: [facility] ,Rqrkxznmnksct730<=150 mg/fOUnxzlnmaoes070<=200 mg/dLHDL Dsgrwtymqgf9975-30 mg/dL > or =60 mg/dl - LOW CARDIOVASCULAR RISK <40 mg/dl - HIGH CARDIOVASCULAR RISK LDL Cholesterol Crlllnavtu75.0 <100 mg/dl OPTIMAL 100-129 mg/dl NEAR OR ABOVE OPTIMAL 130-159 mg/dl BORDERLINE HIGH 160-189 mg/dl HIGH >190 mg/dl VERY HIGH VLDL MEHFJKWLYTO55.4Chol HDL Ratio4.1 3.3 - 4.4 LOW RISK 4.4 - 7.1 AVERAGE RISK 7.1 - 11.0 MODERATE RISK >11.0 HIGH RISK Performing Lab:see noteML - [facility] LBPROF 14(COMP METB) Reviewed date:05/08/2024 09:05:54 PM Interpretation: Performing Lab: Notes/Report: [facility] ,Iluldc404142-029 mmol/LPotassium3.93.5-5.1 mmol/YKuddwxgu13474-339 mmol/LCarbon Bmhlmqx66.921.0-32.0 mmol/LAnion Gap11.0Dwflqyt7633-044 mg/dLBlood Urea Nitrogen 10.07.0-18.0 mg/dLCreatinine0.740.70-1.30 mg/dLEstimated GFR ( Bebe>60 >=60 mL/min/1.73m 2Estimated GFR (Non- Lurdes>60>=60 mL/min/1.73m 2BUN Creatinine Ratio13.3Cgqzytx6.68.5-10.1 mg/dLBilirubin Total0.50.2-1.0 mg/dL Aspartate Amino Lpixotfseki8830-97 U/LAlanine Qzijlpmcdfhgywxu66204-74 U/L Alkaline Cfaoqugcley3660-478 U/LTotal Protein7.66.4-8.2 g/dLAlbumin Level3.63.4- 5.0 g/dLGlobulin4.0Albumin Globulin Ratio0.9Performing Lab:see noteML - [facility] LBT4 Reviewed date:05/08/2024 09:05:54 PM Interpretation: Performing Lab: Notes/Report: [facility] ,T4 Thyroxine8.504.50-12.10 ug/dLPerforming Lab:see noteML - [facility] LBTSH Reviewed date:05/08/2024 09:05:54 PM Interpretation: Performing Lab: Notes/Report: [facility] ,Thyroid Stimulating Hormone2.2060.358-3.740 uIU/mLPerforming Lab:see noteML - [facility] LBCBC AUTO DIFF Reviewed date:05/31/2024 12:42:49 PM Interpretation: Performing Lab: Notes/Report: [facility] ,White Blood Count8.84.0-11.0 10 3/uLRed Blood Count4.954.70-6.10 10 6/uL Dqukeihrjt32.814.0-18.0 g/bBFrafiqqnbh16.042.0-54.0 %Mean Corpuscular Vgkhou18.9 80.0-94.0 fLMean Corpuscular Xqbwumdyal42.925.9-34.0 pgMean Corpuscular HGB Conc 32.129.9-35.2 g/dLRed Cell Distribution Width12.811.0-15.0 %Platelet Dwlrx282 150-450 10 3/uLMean Platelet Eczijq39.69.5-13.5 fLNeutrophils Percent Auto61.9 43.0-75.0 %Lymphocytes Percent Auto28.420.5-60.0 %Monocytes Percent Auto8.11.7- 12.0 %Eosinophils Percent Auto1.00.9-7.0 %Basophils Percent Auto0.30.2-2.0 % Immature Granulocytes Pct Auto0.30.0-0.5 %Neutrophils Absolute Auto5.41.4-6.5 10 3/uLLymphocytes Absolute Auto2.51.2-3.8 10 3/uLMonocytes Absolute Auto0.70.3-0.8 10 3/uLEosinophils Absolute Auto0.10.0-0.7 10 3/uLBasophils Absolute Auto0.00.0- 0.1 10 3/uLImmature Granulocytes Abs Auto0.030.00-0.03 10 3/uLPerforming Lab:see noteML - [facility] LBPROF 14(COMP METB) Reviewed date:05/31/2024 12:42:49 PM Interpretation: Performing Lab: Notes/Report: [facility] ,Twqmfp735647-807 mmol/LPotassium3.83.5-5.1 mmol/EUqztzoqm32913-840 mmol/LCarbon Dcldcpu90.921.0-32.0 mmol/LAnion Gap10.3Dlnmcaj4117-999 mg/dLBlood Urea Nitrogen 11.07.0-18.0 mg/dLCreatinine0.970.70-1.30 mg/dLEstimated GFR ( Bebe>60 >=60 mL/min/1.73m 2Estimated GFR (Non- Lurdes>60>=60 mL/min/1.73m 2BUN Creatinine Ratio11.7Tqwfcnr0.18.5-10.1 mg/dLBilirubin Total0.40.2-1.0 mg/dL Aspartate Amino Ihhobfegiwo3059-23 U/LAlanine Itdnwtbmvazsmngm4869-54 U/L Alkaline Aadencrmjyb6098-924 U/LTotal Protein7.76.4-8.2 g/dLAlbumin Level3.63.4- 5.0 g/dLGlobulin4.1Albumin Globulin Ratio0.9Performing Lab:see noteML - [facility] LBXR foot RT min 3V Reviewed date:03/29/2025 12:05:17 PM Interpretation: Performing Lab: Notes/Report: Source Facility: [place] [id number] XRay Report Signed Patient: MARY ROBLES MR#: [id number] : 1995 Acct:[id number] Age/Sex: 29 / M ADM Date: 03/27/25 Loc: RAD Attending Dr: Akbar Perez D.P.M. Ordering Physician: Akbar Perez D.P.M. Date of Service: 03/27/25 Procedure(s): XR foot RT min 3V Accession Number(s): [id number] cc: Akbar Perez D.P.M.; Jose Antonio Henao M.D. [address] [place] [address] Patient Name: MARY ROBLES MRN: [id number] date: 1995 Sex: M Assigned Patient Location: [facility] Current Patient Location: PT Accession/Order Number: [id number] Exam Date: 03/27/2025 14:10 Report Date: 03/27/2025 23:33 At the request of: AKBAR PEREZ DPM Procedure: XR foot RT min 3V 3 views right foot compared to prior examination 02/28/2025. There is stable bony alignment with interval healing of fracture of the proximal portion of the fifth metatarsal. XR/XR foot RT min 3V Impression: Healing fracture with stable alignment Impression dictated by: Del Michael M.D. 03/27/2025 11:33 PM Dictation Location: [place] [address] Electronically authenticated by: [id number] Y Date: 03/27/2025 23:33 Dictated By: Del Michael D.O. Signed By: 03/27/252335 DD/ 32 TD/TT: Foster Care Therapist:Acute Hepatitis Reviewed date:06/01/2024 08:08:01 PM Interpretation: Performing Lab: Notes/Report: [facility] ,Hep A Ab, IgMNegativeNegative A negative anti-HAV IgM result suggests no recent or current HAV infection. HBsAg ScreenNegativeNegativeHep B Core Ab, IgMNegativeNegativeHCV AbNon Reactive Non ReactiveInterpretation:Comment. Not infected with HCV unless early or acute infection is suspected (which may be delayed in an immunocompromised individual), or other evidence exists to indicate HCV infection. Performed at: [address] [id number] Starting Gate Driver: Fabrizio Garzon PhD, Phone: [phone] Performing Lab:see note - [facility] LBINSULIN Reviewed date:05/09/2024 02:26:39 PM Interpretation: Performing Lab: Notes/Report: [facility] ,Pjkxcos89.92.6-24.9 uIU/mL Performed at: [address] [id number] Starting Gate Driver: Fabrizio Garzon PhD, Phone: [phone] Performing Lab:see [facility] LBGLYCOHEMOGLOBIN A1C Reviewed date:05/08/2024 09:05:54 PM Interpretation: Performing Lab: Notes/Report: [facility] ,Glycohemoglobin A1C6.04.5-6.2 % ADA RECOMMENDED LIMIT 4.0 - 6.0 ADA THERAPEUTIC TARGET < 7.0 ACTION SUGGESTED > 7.0 Estimated Average Ljsavlg479Bynkhlygcy Lab:see note - [facility] LB XR foot RT min 3V Reviewed date:02/28/2025 12:52:14 PM Interpretation: Performing Lab: Notes/Report: Source Facility: [place] [address] [place] [address] XRay Report Signed Patient: MARY ROBLES MR#: [id number] : 1995 Acct:[id number] Age/Sex: 29 / M ADM Date: 02/28/25 Loc: ER Attending Dr: Ordering Physician: Dennis Thompson M.D. Date of Service: 02/28/25 Procedure(s): XR foot RT min 3V Accession Number(s): [id number] cc: Jose Antonio Henao M.D.; Dennis Thompson M.D. [place] [address] Patient Name: MARY ROBLES MRN: [id number] date: 1995 Sex: M Assigned Patient Location: ER Current Patient Location: Accession/Order Number: [id number] Exam Date: 02/28/2025 09:40 Report Date: 02/28/2025 [...] Ponce M.D. 02/28/2025 10:07 AM Dictation Location: [place] [address] Electronically authenticated by: [id number] Y Date: 02/28/2025 10:07 Dictated By: Lona Ponce M.D. Signed By: 02/28/25 1010 DD/ 1007 TD/TT: Foster Care Therapist: Reason For Referral No Information Medications Medication [...] in the past year?Less than monthly (1 point)Mnzspn6Puuicqrouulhfk NegativeAUDIT-C (Standard) Question Answer Notes Did you have a drink containing alcohol in the p ast year? No Kvuddv6OznhllweiufbnlWcpdetdg Problems Problem Type SNOMED Code ICD Code Onset Dates Problem Status W/U Status Risk Notes Problem Hypertension (46687175) Hypertension (I10 ) ActiveconfirmedProblemWell adult (094639073)Well adult (Z00.00)Activeconfirmed ProblemLaboratory test result abnormal (495481799)Abnormal laboratory test (R89.9)ActiveconfirmedProblemMetatarsal bone fracture (273143180)Metatarsal bone fracture (S92.309A)Activeconfirmed Vital Signs Blood pressure diastolic 90 mm Hg 05/08/2024 Masvhn41 in05/08/2024lood pressure usjkpafr265 mm Hg05/08/20247155Ovecis618.2 lbs 05/08/2024BMI47.14 kg/m205/08/2024 Encounters Encounter Location Date Provider Diagnosis [place] [address] [place] [address] 05/08/2024 Deuce [facility] Well adult Z00.00 an d Ingrowing left great toenail L60.0 [facility] [address] [place] [address] 05/08/2024 Deuce [facility] [place] [address] 05/08/2024Doug HoyAbnormal laboratory test R89.[address] [place] [address]/08/2025[facility] [place] [address]/Doug [facility] [place] [address] 03/12/2025Doug HoyIngrowing left great toenail L60.0 Assessments [...] Insured Coverage Start Date Coverage End Date [facility] [place] [address] [place] [phone] [id number] Cyrus Robles - patient is the insured Medical (General) History Medical History History ICD Code Otitis media H66.90 Ganglion cyst M67.40 Auditory impairment H91.90 ADHD F90.9 Surgical History Surgery Date(Month/Year) Circumcision
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
[2025-04-03 15:14] LABS: Anion Gap 8.8; Blood Urea Nitrogen 13.0 mg/dL (7.0-18.0); Calcium 8.8 mg/dL (8.5-10.1); Carbon Dioxide 32.3 mmol/L (21.0-32.0); Chloride 104 mmol/L (98-107); Estimated GFR (African America >60 (>=60 mL/min/1.73m^2); Estimated GFR (Non-African Ame >60 (>=60 mL/min/1.73m^2); Glucose 145 mg/dL (74-106); Potassium 4.1 mmol/L (3.5-5.1); Sodium 141 mmol/L (136-145)
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
== END 2025-04-03 13:38 | disposition home or self-care (01) ==
LOC: PST 13:39
PROVIDERS: PCP Family Medicine; Visit Provider Podiatrist Foot & Ankle Surgery
DX: Z01.810 Encounter for preprocedural cardiovascular examination (principal); Z01.812 Encounter for preprocedural laboratory examination; S92.354A Nondisplaced fracture of fifth metatarsal bone, right foot, initial encounter for closed fracture
CPT/HCPCS: 80048; 93005

== ENCOUNTER 2025-04-04 06:28 | Day surgery (SDC) | payer OTHER, SELFPAY ==
--- OUTSIDE RECORDS SUMMARY | 2025-03-27 08:30 | XMS_ITS ---
Author Organization [employer] Address [address] [address], [facility] [[email or web address] [place] [address] Care Team Providers Care Speech/Language Therapist Name Role Phone Jose Antonio Henao M.D. Primary Care Provider UnavailRaj Andre Unavailable [phone] Allergies No Known Allergies REASON FOR VISIT [...] use. Encounters Encounter Location Date [facility] [address] [address], [facility] [[email or web address] [place] [address] 03/27/2025 Raj Perez Closed nondisplaced fracture of [...] * Fahad ROBLESDOB: 7 (29 yo M)Acc No.[id number]:03/27/2025 Progress Notes Patient: Fahad Grullon :?JENNIFER ArandaOB:1995???Age:29 Y ???Sex:MaleDate:03/27/2025Phone:Address:[address] [place] [address] , [facility]Pcp:Jose Antonio Henao M.D. Subjective: * Chief Complaints: [...] 2 diabetes mellitus without complication, unspecified whether detention insulin use, Essential hypertension. F amily History [...] post op Billing Information: * Visit Code: 26117 Office Visit, Est Pt., Level 4. * Procedure Codes: * Sign off status: Completed true * Provider: Shannon Perez DPM Date: 05/28/2024 Generated for Printing/Faxing/eTransmitting on:?04/04/2025 06:31 AM EST
[2025-04-03 13:58] VITALS: BP 134/84; PULSE 89; TEMP 36.4; O2SAT 99; BMI 44.8
--- OUTSIDE RECORDS SUMMARY | 2025-04-04 06:31 | XMS_ITS | Patient Health Record ---
Author Organization [facility] [email or web address] [facility] Address [address] [place] [address], [facility] [place] [address] Care Team Providers Care Marine Electrician Helper Name Role Phone Jose Antonio Henao M.D. Primary Care Provider UnavailRaj Andre Unavailable [phone] Allergies No Known Allergies Reason For Referral No Information Medications Medication SIG (Take, Route, Frequency, Duration) Notes Start Date End Date Status Acetaminophen-Codeine 300-30 MG Tablet Oral; Dur ation: 5 Days ActiveIbuprofen 800 MG Tablet 1 tablet with food or milk as needed Orally every 8 hrs; Duration: 30 days As needed 5ActiveLisinopril 20 MG TabletOral; Duration: 90 DaysActiveIbuprofen 800 MG TabletOral; Duration: 7 DaysActive Social History Section Notes: No tobacco use. Social alcohol use. No tobacco use. Social alcohol use. Encounters Encounter Location Date Provider Diagnosis [address] [place] [address] 03/05/2025 Raj Brandonmiya Closed nondisplaced fracture of fifth metatarsal bone of right foot, initial encounter S92.354A [facility] [employer] [place] [address], [facility] [place] [address] 03/27/2025 Raj Perez Closed nondisplaced fracture of [...] Date Coverage End Date [employer] [address] [address] [place] [address] [id number] Cyrus Robles - patient is the insured Medical (General) History Medical History History ICD Code High Blood Pressure
--- OUTSIDE RECORDS SUMMARY | 2025-04-04 06:31 | XMS_ITS | Patient Health Record ---
Author Organization [facility] in [place] Address [address] [place] [address] Care Team Providers Care Urogynaecologist Name Role Phone Deuce Henao Primary Care Provider [phone] Allergies No Known Allergies Results Component Value Reference Range Notes CBC AUTO DIFF Reviewed date:05/08/2024 09:05:54 PM Interpretation: Performing Lab: Notes/Report: [facility] , White Blood Count 6.8 4.0-11.0 10 3/uL Red Blood Count4.614.70-6.10 10 6/sMBmahascolz84.814.0-18.0 g/fWVsnpkkwrwl32.8 42.0-54.0 %Mean Corpuscular Ewjavw24.380.0-94.0 fLMean Corpuscular Hemoglobin 27.825.9-34.0 pgMean Corpuscular HGB Conc32.229.9-35.2 g/dLRed Cell Distribution Width12.711.0-15.0 %Platelet Tjyqu986393-903 10 3/uLMean Platelet Dzvbfx67.89.5- 13.5 fLNeutrophils Percent Auto48.443.0-75.0 %Lymphocytes Percent Auto38.620.5- 60.0 %Monocytes Percent Auto11.11.7-12.0 %Eosinophils Percent Auto1.30.9-7.0 % Basophils Percent Auto0.30.2-2.0 %Immature Granulocytes Pct Auto0.30.0-0.5 % Neutrophils Absolute Auto3.31.4-6.5 10 3/uLLymphocytes Absolute Auto2.61.2-3.8 10 3/uLMonocytes Absolute Auto0.80.3-0.8 10 3/uLEosinophils Absolute Auto0.10.0- 0.7 10 3/uLBasophils Absolute Auto0.00.0-0.1 10 3/uLImmature Granulocytes Abs Auto0.020.00-0.03 10 3/uLPerforming Lab:see noteML - [facility] LBXR foot RT min 3V Reviewed date:02/28/2025 12:52:14 PM Interpretation: Performing Lab: Notes/Report: Source Facility: [place] [address] [place] [address] XRay Report Signed Patient: MARY ROBLES MR#: [id number] : 1995 Acct:[id number] Age/Sex: 29 / M ADM Date: 02/28/25 Loc: ER Attending Dr: Ordering Physician: Dennis Thompson M.D. Date of Service: 02/28/25 Procedure(s): XR foot RT min 3V Accession Number(s): [id number] cc: Jose Antonio Henao M.D.; Dennis Thompson M.D. [address] [place] [address] Patient Name: MARY ROBLES MRN: [id number] date: 1995 Sex: M Assigned Patient Location: ER Current Patient Location: Accession/Order Number: [id number] Exam Date: 02/28/2025 09:40 Report Date: 02/28/2025 [...] Ponce M.D. 02/28/2025 10:07 AM Dictation Location: [place] [address] Electronically authenticated by: [id number] Y Date: 02/28/2025 10:07 Dictated By: Lona Ponce M.D. Signed By: 02/28/25 1010 DD/ 1007 TD/TT: Apprentice Technician:PROF Fontaine(COMP METB) Reviewed date:05/31/2024 12:42:49 PM Interpretation: Performing Lab: Notes/Report: [facility] ,Kxgqvp144041-156 mmol/LPotassium3.83.5-5.1 mmol/UYhgausac01281-245 mmol/LCarbon Fjqhayw63.921.0-32.0 mmol/LAnion Gap10.8Yvotpqz4059-451 mg/dLBlood Urea Nitrogen 11.07.0-18.0 mg/dLCreatinine0.970.70-1.30 mg/dLEstimated GFR ( Bebe>60 >=60 mL/min/1.73m 2Estimated GFR (Non- Lurdes>60>=60 mL/min/1.73m 2BUN Creatinine Ratio11.9Pzcugin8.18.5-10.1 mg/dLBilirubin Total0.40.2-1.0 mg/dL Aspartate Amino Lyucoskdilt9257-19 U/LAlanine Xojgpxfkihnvznyx0723-81 U/L Alkaline Tmqecnbyyxu9738-263 U/LTotal Protein7.76.4-8.2 g/dLAlbumin Level3.63.4- 5.0 g/dLGlobulin4.1Albumin Globulin Ratio0.9Performing Lab:see noteML - [facility] LBCBC AUTO DIFF Reviewed date:05/31/2024 12:42:49 PM Interpretation: Performing Lab: Notes/Report: [facility] ,White Blood Count8.84.0-11.0 10 3/uLRed Blood Count4.954.70-6.10 10 6/uL Imsiqketpe72.814.0-18.0 g/cSEtnroxppbi59.042.0-54.0 %Mean Corpuscular Yjmvoq35.9 80.0-94.0 fLMean Corpuscular Umltabkwdy53.925.9-34.0 pgMean Corpuscular HGB Conc 32.129.9-35.2 g/dLRed Cell Distribution Width12.811.0-15.0 %Platelet Safqm965 150-450 10 3/uLMean Platelet Iueddo99.69.5-13.5 fLNeutrophils Percent Auto61.9 43.0-75.0 %Lymphocytes Percent Auto28.420.5-60.0 %Monocytes Percent Auto8.11.7- 12.0 %Eosinophils Percent Auto1.00.9-7.0 %Basophils Percent Auto0.30.2-2.0 % Immature Granulocytes Pct Auto0.30.0-0.5 %Neutrophils Absolute Auto5.41.4-6.5 10 3/uLLymphocytes Absolute Auto2.51.2-3.8 10 3/uLMonocytes Absolute Auto0.70.3-0.8 10 3/uLEosinophils Absolute Auto0.10.0-0.7 10 3/uLBasophils Absolute Auto0.00.0- 0.1 10 3/uLImmature Granulocytes Abs Auto0.030.00-0.03 10 3/uLPerforming Lab:see noteML - [facility] LBTSH Reviewed date:05/08/2024 09:05:54 PM Interpretation: Performing Lab: Notes/Report: [facility] ,Thyroid Stimulating Hormone2.2060.358-3.740 uIU/mLPerforming Lab:see noteML - [facility] LBT4 Reviewed date:05/08/2024 09:05:54 PM Interpretation: Performing Lab: Notes/Report: [facility] ,T4 Thyroxine8.504.50-12.10 ug/dLPerforming Lab:see noteML - [facility] LBPROF 14(COMP METB) Reviewed date:05/08/2024 09:05:54 PM Interpretation: Performing Lab: Notes/Report: [facility] ,Mgqhdb909879-740 mmol/LPotassium3.93.5-5.1 mmol/AQyvdnyaq11939-421 mmol/LCarbon Kpamhpt88.921.0-32.0 mmol/LAnion Gap11.7Gvlskve3886-452 mg/dLBlood Urea Nitrogen 10.07.0-18.0 mg/dLCreatinine0.740.70-1.30 mg/dLEstimated GFR ( Bebe>60 >=60 mL/min/1.73m 2Estimated GFR (Non- Lurdes>60>=60 mL/min/1.73m 2BUN Creatinine Ratio13.8Jcxmntf0.68.5-10.1 mg/dLBilirubin Total0.50.2-1.0 mg/dL Aspartate Amino Brctzwrcloz3157-12 U/LAlanine Dmkpvblitlhpjwix96445-52 U/L Alkaline Burihvcrbec7041-310 U/LTotal Protein7.66.4-8.2 g/dLAlbumin Level3.63.4- 5.0 g/dLGlobulin4.0Albumin Globulin Ratio0.9Performing Lab:see greta - [facility] LBLIPID PROFILE Reviewed date:05/08/2024 09:05:54 PM Interpretation: Performing Lab: Notes/Report: [facility] ,Vhkinlredrzuc182<=150 mg/wHQhdfpsvmlxz761<=200 mg/dLHDL Qqgyarzgpgj2190-00 mg/dL > or =60 mg/dl - LOW CARDIOVASCULAR RISK <40 mg/dl - HIGH CARDIOVASCULAR RISK LDL Cholesterol Kqfgohfzbn59.0 <100 mg/dl OPTIMAL 100-129 mg/dl NEAR OR ABOVE OPTIMAL 130-159 mg/dl BORDERLINE HIGH 160-189 mg/dl HIGH >190 mg/dl VERY HIGH VLDL BPLFEQRPAKW51.4Chol HDL Ratio4.1 3.3 - 4.4 LOW RISK 4.4 - 7.1 AVERAGE RISK 7.1 - 11.0 MODERATE RISK >11.0 HIGH RISK Performing Lab:see greta - [facility] LBINSULIN Reviewed date:05/09/2024 02:26:39 PM Interpretation: Performing Lab: Notes/Report: [facility] ,Vmwzyfa46.92.6-24.9 uIU/mL Performed at: [facility] [address] [id number] Education Diagnostician: Fabrizio Garzon PhD, Phone: [phone] Performing Lab:see gretaLC - [facility] LBGLYCOHEMOGLOBIN A1C Reviewed date:05/08/2024 09:05:54 PM Interpretation: Performing Lab: Notes/Report: [facility] ,Glycohemoglobin A1C6.04.5-6.2 % ADA RECOMMENDED LIMIT 4.0 - 6.0 ADA THERAPEUTIC TARGET < 7.0 ACTION SUGGESTED > 7.0 Estimated Average Yxcpdnm221Ahbvvhuhkn Lab:see noteML - [facility] LB FREE T3 Reviewed date:05/08/2024 09:05:54 PM Interpretation: Performing Lab: Notes/Report: [facility] ,Free T33.132.18-3.98 pg/mLPerforming Lab:see noteML - [facility] LB ECG 12 lead Reviewed date:04/03/2025 08:26:11 PM Interpretation: Performing Lab: Notes/Report: Source Facility: [facility]-[address] [place] [address] Electrocardiograph Report Signed Patient: MARY ROBLES MR#: [id number] : 1995 Acct:[id number] Age/Sex: 29 / M ADM Date: 04/03/25 Loc: PST Attending Dr: Akbar Perez D.P.M. Ordering Physician: Akbar Perez D.P.M. Date of Service: 04/03/25 Procedure(s): ECG 12 lead Accession Number(s): [id number] cc: [facility] Test Date: 2025-04-03 Pat Name: MARY ROBLES Department: Room: - Gender: Male Fine Patcher: : 1995 Requested By: AKBAR PEREZ Order Number: [id number] Sean MD: CARINE LOMBARDO M.D. Measurements Intervals [place] Rate: 76 P: 32 AR: 149 QRS: 73 QRSD: 102 T: 18 QT: 382 QTc: 431 Interpretive Statements SINUS RHYTHM Nonspecific ST-T wave changes Abnormal ECG No previous ECG available for comparison Electronically Signed On 04-03-2025 19:21:09 EST by CARINE LOMBARDO M.D. Dictated By: CARINE LOMBARDO Signed By: 04/03/251920 DD/ 1325 TD/TT: Apprentice Technician:PROF JHON Robles ([facility]) Reviewed date:04/03/2025 03:22:23 PM Interpretation: Performing Lab: Notes/Report: [facility] ,Vgnsvt850522-055 mmol/LPotassium4.13.5-5.1 mmol/JWgvjgxol69432-689 mmol/LCarbon Byjipdk22.321.0-32.0 mmol/LAnion Gap8.3Sirnmaz36957-872 mg/dLBlood Urea Nitrogen 13.07.0-18.0 mg/dLCreatinine0.940.70-1.30 mg/dLEstimated GFR ( Bebe>60 >=60 mL/min/1.73m 2Estimated GFR (Non- Lurdes>60>=60 mL/min/1.73m 2BUN Creatinine Ratio13.9Pkhpnpk0.88.5-10.1 mg/dLPerforming Lab:see noteML - [facility] LBXR foot RT min 3V Reviewed date:03/29/2025 12:05:17 PM Interpretation: Performing Lab: Notes/Report: Source Facility: [facility]-[address] [place] [address] XRay Report Signed Patient: MARY ROBLES MR#: [id number] : 1995 Acct:[id number] Age/Sex: 29 / M ADM Date: 03/27/25 Loc: RAD Attending Dr: Akbar Perez D.P.M. Ordering Physician: Akbar Perez D.P.M. Date of Service: 03/27/25 Procedure(s): XR foot RT min 3V Accession Number(s): [id number] cc: Akbar Perez D.P.M.; Jose Antonio Henao M.D. [place] [address] Patient Name: MARY ROBLES MRN: [id number] date: 1995 Sex: M Assigned Patient Location: RAD Current Patient Location: PT Accession/Order Number: [id number] Exam Date: 03/27/2025 14:10 Report Date: 03/27/2025 23:33 At the request of: AKBAR PEREZ DPDylan Procedure: XR foot RT min 3V 3 views right foot compared to prior examination 02/28/2025. There is stable bony alignment with interval healing of fracture of the proximal portion of the fifth metatarsal. XR/XR foot RT min 3V Impression: Healing fracture with stable alignment Impression dictated by: Del Michael M.D. 03/27/2025 11:33 PM Dictation Location: [facility] Electronically authenticated by: [id number] Y Date: 03/27/2025 23:33 Dictated By: Del Michael D.O. Signed By: 03/27/252335 DD/ 32 TD/TT: Apprentice Technician:Acute Hepatitis Reviewed date:06/01/2024 08:08:01 PM Interpretation: Performing [...] exists to indicate HCV infection. Performed at: [facility] [address] [id number] Education Diagnostician: Fabrizio Garzon PhD, Phone: [phone] Performing Lab:see note - [facility] LB Reason For Referral No Information Medications [...] in the past year?Less than monthly (1 point)Eklcvg4Grsiatjaotdiym NegativeAUDIT-C (Standard) Question Answer Notes Did you have a drink containing alcohol in the p ast year? No Helmla6BanxybogxfyaoqKtpkkzqm Problems Problem Type SNOMED Code ICD Code Onset Dates Problem Status W/U Status Risk Notes Problem Hypertension (82134280) Hypertension (I10 ) ActiveconfirmedProblemWell adult (443871223)Well adult (Z00.00)Activeconfirmed ProblemLaboratory test result abnormal (693639266)Abnormal laboratory test (R89.9)ActiveconfirmedProblemMetatarsal bone fracture (786161304)Metatarsal bone fracture (S92.309A)Activeconfirmed Vital Signs Blood pressure diastolic 90 mm Hg 05/08/2024 Zlvgmb88 in05/08/2024lood pressure mm Hg05/08/20242897Hdjrqj026.2 lbs 05/08/2024BMI47.14 kg/m205/08/2024 Encounters Encounter Location Date Provider Diagnosis [place] [address] [place] [address] 05/08/2024 [facility] [place] [address] 05/08/2024[facility]oyAbnormal laboratory test [facility]89.[facility] [address] [place] [address]/08/2025[facility] [place] [address]/[facility] [place] [address] 03/12/2025Doug HoyIngrowing left great toenail L60.0[place] [address] [place] [address]/06/2024Doug HoWell adult Z00.00 and Ingrowing left great toenail L60.0 Assessments Encounter Date [...] Insured Coverage Start Date Coverage End Date [facility] [id number] [place] [id number] Cyrus Robles - patient is the insured Medical (General) History Medical History History ICD Code Otitis media H66.90 Ganglion cyst M67.40 Auditory impairment H91.90 ADHD F90.9 Surgical History Surgery Date(Month/Year) Circumcision
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
[2025-04-04 06:45] VITALS: BP 121/86; PULSE 85; TEMP 36.2; O2SAT 99; BMI 44.3
[2025-04-04] MEDS: CEFAZOLIN SODIUM 2 GM/50 ML D5W PREMIX IV (08:28)
--- NOTE | 2025-04-04 08:40 | XR_ITS ---
The [address] [address] Patient Name: MARY BOYCE MRN: [id number] date: 1995 Sex: M Assigned Patient Location: [facility] Current Patient Location: [facility] Accession/Order Number: [id number] Exam Date: 04/04/2025 10:15 Report Date: 04/04/2025 11:12 At the request of: AKBAR MULLER DPM Procedure: XR foot RT min 3V RIGHT FOOT - 3 views COMPARISON: 03/27/2025 Clinical data: Follow-up after fixation of fifth metatarsal fracture. AP, lateral and oblique views were obtained were obtained in a splint. There is associated streak artifact. There is redemonstration of a fracture at the proximal shaft of the fifth metatarsal. There is now a cannulated screw that traverses the fracture. Alignment is satisfactory. There is no additional fracture or dislocation. There are no significant soft tissue abnormalities. Lateral skin castro are present toward the calcaneus. XR/XR foot RT min 3V IMPRESSION: INTERVAL INTERNAL FIXATION FRACTURE OF A FIFTH METATARSAL FRACTURE Impression dictated by: Lona Ponce M.D. 04/04/2025 11:12 AM Dictation Location: [facility] Electronically authenticated by: [id number] Y Date: 04/04/2025 11:12
--- NOTE | 2025-04-04 08:48 | PC.NURSE ---
(0750) Final timeout completed. Patient placed on monitor and O2 at 2l/min via nc. Patient positioned on left side. . (0751) Patient medicated via IV per Chente Stone CRNA. Right leg prepped. (0755) Right popliteal landmarked via US per Chente Stone CRNA. (0757) Right popliteal injected without difficulty. (0756) Patient positioned on back. Right abductor site prepped per Chente Stone CRNA. (0805) Right abductor site landmarked via Ultrasound. Right abductor site injected without difficulty. (0808) Block completed. Patient tolerated it well. See posted vital signs.
--- NOTE | 2025-04-04 08:49 | PM.ORONB ---
Brief Operative Note Date of procedure: 04/04/25 Pre-op diagnosis general: Right fifth metatarsal fracture Post-op diagnosis: same as pre-op Procedure: Procedure performed: Open reduction and internal fixation of right fifth metatarsal fracture Indications for procedure: Patient is a 29-year-old male who sustained a right Altman fracture on 02/28/2025. He was referred to me by the emergency department physician and I evaluated him on 03/05/2025. At that time I had a long discussion with him regarding the possible risks and benefits of operative intervention versus nonsurgical treatment particularly emphasizing the high rate of delayed and nonunion. Initially he wanted to pursue nonoperative treatment so he was splinted and told to be nonweightbearing. Then at follow-up on 03/27/2025, he related that he was now interested in pursuing surgical treatment. He related that he had been walking on his foot some and new x-rays showed that the fracture may have slightly distracted. I related to him at that appointment as well as this morning even with intramedullary screw fixation it is paramount that he is nonweightbearing. He related today that he was able to get a knee scooter which will be delivered to his house later today. I again discussed potential risks and benefits of surgical intervention and possible complications include but not limited to incision dehiscence, infection, pain, bleeding, numbness and tingling particularly along the lateral border of the foot, delayed union, malunion or nonunion, painful hardware and need for additional surgery. Intraoperative findings: Procedure in detail: Patient was identified in preoperative holding by myself which time correct side and site were marked and consent was obtained. Regional anesthesia was then performed by the anesthesia team and patient was brought back to the operating theater placed on table in supine position. IV sedation was administered then the patient was positioned into a sloppy lateral taking care to pad all bony prominences and a thigh tourniquet was placed. Perioperative antibiotics were administered and the right lower extremity was prepped and draped in usual sterile fashion. Formal timeout was performed. Under fluoroscopic guidance the borders of the 5th metatarsal were marked. The right lower extremity was exsanguinated and the tourniquet was inflated. Then an incision over the lateral calcaneal wall parallel to the glabrous skin junction over the peroneal tendons was undertaken. Combination sharp and blunt dissection was performed. Neurovascular structures were protected at all bleeders coagulated. Blunt dissection with a hemostat down to the 5th metatarsal base was performed. A guidewire was then placed at the 5th metatarsal base under fluoroscopic guidance and drilled into the intramedullary canal across the fracture line. Utilizing a 4.5 mm cannulated drill the 5th metatarsal was drilled to the length of the K wire. A 4.5 mm tap was then used to prepare the metatarsal for screw placement. Then a 5.5 mm tap was used and there was good intramedullary contact with the threads.The tap and guidewire then removed. A Medline solid Altman 5.5 x 60 mm screw was then placed after the soft tissue protector and wire was removed. Compression was noted across the fracture line and fluoroscopy confirmed screw position. The surgical site was irrigated with copious amounts sterile saline. Then the incision was closed in layers. The tourniquet was deflated with a prompt hyperemic response. A dry sterile dressing and multilayered modified Altman posterior splint was then applied. Patient tolerated the procedure and anesthesia well was transferred to the recovery room with vital signs stable and brisk capillary refill to the right toes. Postoperative plan: Discharge home under his mother's care Nonweightbearing right foot Ice and elevate Prescriptions were sent to his pharmacy using my office EMR Follow-up in 1 to 2 weeks Implants: Medline 5.5 mm solid Altman fracture screw Anesthesia: MAC and regional Surgeon: [facility] Worker: Yessica Mejias Estimated blood loss (mL): 10 Tourniquet time (min): 31 Pathology: none sent Condition: stable Disposition: PACU
[2025-04-04 10:11] VITALS: BP 135/73; PULSE 94; TEMP 36.4; O2SAT 97
[2025-04-04 10:26] VITALS: BP 114/65; PULSE 82; O2SAT 98
[2025-04-04 10:41] VITALS: BP 130/78; PULSE 78; O2SAT 97
[2025-04-04 11:30] VITALS: BP 129/79; PULSE 72; O2SAT 97
== END 2025-04-04 11:30 | disposition home or self-care (01) ==
PROVIDERS: PCP Family Medicine; Visit Provider Podiatrist Foot & Ankle Surgery
PROC: (CPT 1480; principal; 2025-04-04 08:00)
DX: S92.354A Nondisplaced fracture of fifth metatarsal bone, right foot, initial encounter for closed fracture (principal); I10 Essential (primary) hypertension; F84.0 Autistic disorder; X58.XXXA Exposure to other specified factors, initial encounter
CPT/HCPCS: 28485; 36415; 64445; 64450; 73630; 76000; 76942; 82948; C1713; J0131; J0690; J1100; J1171; J1200; J1885; J2003; J2250; J2405; J2704; J2795